=== PATIENT | female | born 1995 | race Asian ===

== ENCOUNTER 2017-10-11 03:58 | Emergency (ER) | payer OTHER ==
--- NOTE | 2017-10-11 05:06 | ER Document Report ---
ED ENT - General Chief Complaint: Sore Throat Stated Complaint: SORE THROAT, FEVER Time Seen by Provider: 10/11/17 04:35 Mode of Arrival: Ambulatory Information source: Patient Notes: Patient is a 22-year-old female who presents with chief complaint of fever, vomiting, productive cough and mild pain with urination. Patient reports that she only vomited 2 times yesterday. Has not had any additional vomiting or diarrhea. Patient reports the sore throat has been going on for several days, the fever started last night. Patient denies any past medical history. TRAVEL OUTSIDE OF THE [place] IN LAST 30 DAYS: No - Related Data Allergies/Adverse Reactions: No Known Allergies Allergy (Unverified 10/11/17 04:07) Past Medical History - General Information source: Patient - Social History Smoking Status: Never Smoker Frequency of alcohol use: None Drug Abuse: None Family History: Reviewed & Not Pertinent Review of Systems - Review of Systems Constitutional: Fever EENT: Throat pain Cardiovascular: No symptoms reported Respiratory: No symptoms reported Gastrointestinal: No symptoms reported Genitourinary: Dysuria Female Genitourinary: No symptoms reported Musculoskeletal: No symptoms reported Skin: No symptoms reported Hematologic/Lymphatic: No symptoms reported Neurological/Psychological: No symptoms reported Physical Exam - Vital signs Vitals: Temp Pulse Resp BP Pulse Ox 100.1 F 117 H 16 113/66 97 10/11/17 04:07 10/11/17 04:07 10/11/17 04:07 10/11/17 04:07 10/11/17 04:07 - Notes Notes: PHYSICAL EXAMINATION: GENERAL: Well-appearing, well-nourished and in no acute distress. HEAD: Atraumatic, normocephalic. EYES: Pupils equal round and reactive to light, extraocular movements intact, conjunctiva are normal. ENT: Nares patent, oropharynx clear without exudates. Moist mucous membranes. NECK: Normal range of motion, supple without lymphadenopathy LUNGS: Breath sounds clear to auscultation bilaterally and equal. No wheezes rales or rhonchi. HEART: Regular rate and rhythm without murmurs ABDOMEN: Soft, nontender, nondistended abdomen. No guarding, no rebound. No masses appreciated. Female : deferred Musculoskeletal: Normal range of motion, no pitting or edema. No cyanosis. NEUROLOGICAL: Cranial nerves grossly intact. Normal speech, normal gait. Normal sensory, motor exams PSYCH: Normal mood, normal affect. SKIN: Warm, Dry, normal turgor, no rashes or lesions noted. Course - Re-evaluation Re-evalutation: Patient's workup today is unremarkable. Patient's assessment is benign. Patient appears nontoxic, in no acute distress. Urinalysis is normal. Rapid strep is negative. Patient with low-grade fever and mild tachycardia, will give patient 1 L bolus. Patient now reporting that her had similar symptoms 4 days ago which resolved on their own. Will discharge patient home with likely viral illness after her 1 L normal saline bolus. Patient and are both agreeable to the plan, will return if she does not improve. - Vital Signs Vital signs: Temp Pulse Resp BP Pulse Ox 99.1 F 99 20 105/49 L 97 10/11/17 07:06 10/11/17 07:06 10/11/17 07:06 10/11/17 07:06 10/11/17 07:06 Discharge - Discharge Clinical Impression: Viral illness Pharyngitis Qualifiers: Pharyngitis/tonsillitis etiology: unspecified etiology Qualified Code(s): J02.9 - Acute pharyngitis, unspecified Condition: Stable Disposition: HOME, SELF-CARE Prescriptions: Fluticasone Propionate [Flonase Nasal Le [place] 50 Mcg/[place] 16 gm] 2 sprays NASL Q12 #1 inhaler Guaifenesin/Pseudoephedrne HCl [Mucinex D ER Tablet] 1 each PO Q12H #20 tab.er.12h
--- NOTE | 2017-10-11 05:34 | RADIOLOGY REPORT (SQ) ---
EXAM DESCRIPTION: XR CHEST 2 VIEWS COMPLETED DATE/TME: 10/11/2017 05:01 CLINICAL HISTORY: fever, cough COMPARISON: None. FINDINGS: Frontal and lateral views of the chest. The cardiomediastinal silhouette has normal size and contour. No consolidation, pneumothorax, or pleural effusion. No displaced rib fractures identified. Upper abdominal soft tissues are unremarkable. IMPRESSION: 1. No acute pulmonary process identified.
[2017-10-11 05:49] LABS: APPEARANCE,URINE CLEAR; BILIRUBIN,URINE NEGATIVE (NEGATIVE); COLOR,URINE STRAW; GLUCOSE, URINE NEGATIVE (NEGATIVE); KETONES,URINE NEGATIVE (NEGATIVE); LEUKOCYTE ESTERASE,URINE NEGATIVE (NEGATIVE); NITRITE,URINE NEGATIVE (NEGATIVE); PROTEIN,URINE NEGATIVE (NEGATIVE); URINE SPECIFIC GRAVITY 1.004; UROBILINOGEN,URINE NEGATIVE mg/dL (<2.0)
[2017-10-11] MEDS ORDERED: NORMAL SALINE INJ/PF 0.9% 10 ML SDV IV ONE (06:58)
[2017-10-11 07:09] VITALS: BP 105/49
== END 2017-10-11 07:11 | disposition home or self-care (01) ==
LOC: ER 03:58
DX: J02.9 Acute pharyngitis, unspecified (principal); B34.9 Viral infection, unspecified; R50.9 Fever, unspecified; R11.10 Vomiting, unspecified; R05 Cough; R30.0 Dysuria
CPT/HCPCS: 99283; 87070; 87880; 81001; 71046; J3490